=== PATIENT | female | born 1965 | race Caucasian/White ===

== ENCOUNTER → 2023-11-01 09:03 | Outpatient (REF) | payer BC, SELFPAY | LOC: WDC 09:03 | PROVIDERS: ATTENDING PHYSICIAN Student in an Organized Health Care Education/Training Program; FAMILY PHYSICIAN Family Medicine | DX: N63.24 Unspecified lump in the left breast, lower inner quadrant (principal) | CPT/HCPCS: 76642; 77062; 77066 ==

== ENCOUNTER → 2025-06-08 19:06 | Outpatient (REF) | payer BC, SELFPAY | LOC: WDC 19:06 | PROVIDERS: ATTENDING PHYSICIAN Family Medicine | DX: Z12.31 Encounter for screening mammogram for malignant neoplasm of breast (principal) | CPT/HCPCS: 77063; 77067 ==